=== PATIENT | female | born 1980 ===

== ENCOUNTER 2020-12-08 22:34 | Emergency (ER) | payer MEDICAID ==
--- NOTE | 2020-12-08 22:38 | NUR ---
TIME OF CALLED BY DR. FULLER AT THIS TIME.
[2020-12-08] MEDS ORDERED: CODE BLUE RESPONSE XX ONE (22:45)
[2020-12-08] MEDS ORDERED: EPINEPHRINE SYRINGE 0.1 MG/ML, 10ML ONE (22:45)
[2020-12-08] MEDS ORDERED: DEXTROSE 50%, 50ML SYRINGE ONE (22:45)
--- NOTE | 2020-12-08 22:45 | NUR ---
STEPHANE CARROLL [id number]
--- NOTE | 2020-12-08 23:05 | NUR ---
SPOKE WITH ZOYA AT THE VENDING MACHINE COLLECTOR'S OFFICE. VENDING MACHINE COLLECTOR TO COME HERE WHEN AVAILABLE. NO CASE NUMBER ASSIGNED YET.
--- NOTE | 2020-12-08 23:17 | NUR ---
CALLED [employer] [place]. SPOKE WITH JADYN. STATES PT. IS SUITABLE FOR TISSUE DONATION AT THIS TIME. REFERRAL #[id number].
--- NOTE | 2020-12-09 00:05 | NUR ---
ISA NO [phone].
--- NOTE | 2020-12-09 00:28 | NUR ---
INSURANCE INSPECTOR HERE TO COMPLETE EXAM. PT. TO BE TAKEN TO [place] UNTIL MORTUARY ABLE TO BUFFET SERVER. PT. IN INSURANCE INSPECTOR BODY BAG; ZIPPERS SECURED. 2 RINGS AND 1 NECKLACE TAKEN BY INSURANCE INSPECTOR.
--- NOTE | 2020-12-09 00:51 | NUR ---
CALL RECEIVED FROM HOME HEALTH ADMINISTRATOR; PT. WAS FOUND IN SYSTEM, CORRECT SPELLING OF PT. NAME IS LYLE GRACIA. ASSISTANT WINEMAKER CALLED AND STATED THEY ARE ON THE WAY.
== END 2020-12-09 01:21 | disposition expired ==
LOC: EDBD 22:34 → ED 23:00
DX: I46.9 Cardiac arrest, cause unspecified (principal)
CPT/HCPCS: 92950; 99285